=== PATIENT | male | born 1990 | race African-American/Black ===

== ENCOUNTER 2021-04-08 15:39 | Emergency (ER) | payer MEDICAID ==
[~2021-04-08] VITALS: Ht 185.4 cm; Wt 83.5 kg
[2021-04-08 15:49] VITALS: BP 115/65
--- NOTE | 2021-04-08 19:46 | NUR ---
PT AMBULATED TO BED #11
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
[2021-04-08] MEDS ORDERED: IBUP-2213 PO (20:22)
[2021-04-08] MEDS ORDERED: ACET-10509 PO (20:22)
[2021-04-08] MEDS ORDERED: CYCL-711 PO (20:22)
--- NOTE | 2021-04-08 20:30 | NUR ---
PATIENT CLEARED FOR DISHCARGE AT THIS TIME WITH NO FURTHER COMPLAINTS OR CONCERNS FOLLOWING DIHSCARGE TEACHING. ADVISED TO FOLLOW UP WITH PCP AND RETURN IF CONDITION WORSEMS.
[2021-04-08 20:31] VITALS: BP 122/74
== END 2021-04-08 20:30 | disposition home or self-care (01) ==
LOC: MED 15:39
DX: S39.012A Strain of muscle, fascia and tendon of lower back, initial encounter (principal); H93.13 Tinnitus, bilateral; M79.18 Myalgia, other site; Z79.899 Other long term (current) drug therapy; Z79.1 Long term (current) use of non-steroidal anti-inflammatories (NSAID); V49.9XXA Car occupant (driver) (passenger) injured in unspecified traffic accident, initial encounter; Y93.89 Activity, other specified; Y92.410 Unspecified street and highway as the place of occurrence of the external cause; Y99.8 Other external cause status
CPT/HCPCS: 99283